=== PATIENT | male | born 1985 | race American Indian/Alaskan Native ===

== ENCOUNTER 2019-06-22 10:05 | Emergency (ER) | payer OTHER ==
[2019-06-22 10:28] VITALS: BP 125/80
[2019-06-22] MEDS ORDERED: ONDANSETRON 4 MG/2 ML INJ IV ONE (11:29)
[2019-06-22] MEDS ORDERED: FAMOTIDINE 20 MG/2 ML INJ IV ONE (11:29)
[2019-06-22] MEDS ORDERED: DICYCLOMINE 20 MG/2 ML INJ IM ONE (11:29)
[2019-06-22] MEDS ORDERED: SODIUM CHLORIDE 0.9% 1000 ML 1,000 ML IV ONE (11:29)
[2019-06-22] MEDS ORDERED: KETOROLAC 30 MG/1 ML INJ IV ONE (11:31)
[2019-06-22 11:50] LABS: Bilirubin,Urine NEG (Negative); Blood,Urine SM (Negative); Color,Urine Yellow (Yellow); Mucus,Urine FEW /HPF; Urobilinogen,Urine < 2.0 mg/dL (<2.0)
[2019-06-22 11:51] LABS: WBC,Urine < 1.0 /HPF (0.0-6.0)
[2019-06-22 12:01] LABS: Hematocrit 48.8 % (35.5-45.6); Hemoglobin 16.8 gm/dl (11.8-15.2); Mean Corpuscular HGB Conc 34 % (32-34); Mean Corpuscular Volume 90 fl (84-94); Platelet Count 217 K/mm3 (140-440); Red Blood Count 5.41 M/mm3 (3.65-5.03)
[2019-06-22 12:24] LABS: Alanine Aminotransferase 30 units/L (7-56); Albumin 4.7 g/dL (3.9-5); BUN/Creatinine Ratio 13; Blood Urea Nitrogen 14 mg/dL (9-20); Calcium 9.7 mg/dL (8.4-10.2); Hemolysis Index 27
[2019-06-22 12:53] LABS: Basophils % (Manual) 0 % (0.0-1.8); Eosinophils % (Manual) 0 % (0.0-4.3); Total Cells Counted 100
[2019-06-22 12:54] LABS: Anisocytosis Few; Platelet Estimate Consistent w Auto
--- NOTE | 2019-06-22 13:59 | Cat Scan Report ---
CT abdomen pelvis w con INDICATION: NVD abd pain. TECHNIQUE: All CT scans at this location are performed using the following dose modulation technique: Automated exposure control. CONTRAST: IV. COMPARISON: None available. CT ABDOMEN: Evaluation the parenchymal organs demonstrates a large fatty liver. The large and small bowel contains fluid scattered diffusely. Negative for obstruction or localized w all thickening. Mild increased density is seen at the root of the small bowel mesentery with numerous small associated nodes. No mass, retroperitoneal adenopathy or fluid collection CT PELVIS: Negative for mass, adenopathy or inflammation. IMPRESSION: 1. Gastroenteritis-type process. 2. Increased density at the root of the small bowel mesentery with associated small nodes is likely r eactive. Signer Name: Andriy Christian MD Signed: 06/22/2019 1:54 PM Workstation Name: [id number]
--- NOTE | 2019-06-22 14:15 | Emergency Department Report ---
ED N/V/D HPI - General Chief complaint: Nausea/Vomiting/Diarrhea Stated complaint: CHEST PAIN/WEAK/V/D Time Seen by Provider: 06/22/19 11:14 Source: patient Mode of arrival: Wheelchair Limitations: No Limitations - History of Present Illness Initial comments: Patient is a 33-year-old -[place] male with no significant past medical history who states he has had nausea and vomiting and some mild diarrhea since early this morning. Patient states his last meal was fast food. Patient states he woke up with chills and has been unable to keep anything down. Patient's abdominal pain is crampy in nature and is centrally located. There is no radi ation at this time. Patient denies cough cold congestion sore throat or neck stiffness at this time. MD complaint: nausea, vomiting, diarrhea, abdominal pain - Related Data Previous Rx's Medication Instructions Recorded Last Taken Type Cyclobenzaprine [Flexeril] 10 mg PO TID #14 tablet 03/09/13 Unknown Rx Hydrocodone Bit/Acetaminophen 1 each PO Q8H #10 tablet 03/09/13 Unknown Rx [Lortab 7.5-500 mg] Dicyclomine [Bentyl] 20 mg PO QID #10 tablet 06/22/19 Unknown Rx Famotidine [Pepcid] 20 mg PO BID #20 tablet 06/22/19 Unknown Rx Ondansetron [Zofran Odt] 4 mg PO Q8HR #10 tab.rapdis 06/22/19 Unknown Rx Allergies Allergy/AdvReac Type Severity Reaction Status Date / Time No Known Allergies Allergy Unverified 03/09/13 13:05 ED Review of Systems ROS: Stated complaint: CHEST PAIN/WEAK/V/D Other details as noted in HPI Comment: All other systems reviewed and negative ED Past Medical Hx - Past Medical History Previous Medical History?: No - Surgical History Past Surgical History?: No - Social History Smoking Status: Never Smoker Substance Use Type: Alcohol - Medications Home Medications: Home Medications Medication Instructions Recorded Confirmed Last Taken Type Cyclobenzaprine [Flexeril] 10 mg PO TID #14 tablet 03/09/13 Unknown Rx Hydrocodone Bit/Acetaminophen 1 each PO Q8H #10 tablet 03/09/13 Unknown Rx [Lortab 7.5-500 mg] Dicyclomine [Bentyl] 20 mg PO QID #10 tablet 06/22/19 Unknown Rx Famotidine [Pepcid] 20 mg PO BID #20 tablet 06/22/19 Unknown Rx Ondansetron [Zofran Odt] 4 mg PO Q8HR #10 tab.rapdis 06/22/19 Unknown Rx ED Physical Exam - General Limitations: No Limitations General appearance: alert, in distress - Head Head exam: Present: atraumatic, normocephalic - Eye Eye exam: Present: normal appearance, PERRL, EOMI - ENT ENT exam: Present: mucous membranes moist - Neck Neck exam: Present: normal inspection - Respiratory Respiratory exam: Present: normal lung sounds bilaterally. Absent: respiratory distress, wheezes, rales, rhonchi - Cardiovascular Cardiovascular Exam: Present: regular rate, normal rhythm, normal heart sounds. Absent: systolic murmur, diastolic murmur, rubs, gallop - GI/Abdominal GI/Abdominal exam: Present: soft, tenderness (central), normal bowel sounds. Absent: distended, guarding, rebound - Rectal Rectal exam: Present: deferred - Extremities Exam Extremities exam: Present: normal inspection - Back Exam Back exam: Present: normal inspection - Neurological Exam Neurological exam: Present: alert, oriented X3 - Psychiatric Psychiatric exam: Present: normal affect, normal mood - Skin Skin exam: Present: warm, dry, intact, normal color. Absent: rash ED Course Vital Signs 06/22/19 10:27 Temperature 99.5 F Pulse Rate 105 H Respiratory 20 Rate Blood Pressure 125/80 O2 Sat by Pulse 98 Oximetry ED Medical Decision Making - Lab Data Result diagrams: 06/22/19 11:49 06/22/19 11:49 Lab Results 06/22/19 06/22/19 06/22/19 Range/Units 11:25 11:49 11:49 WBC 9.5 (4.5-11.0) K/mm3 RBC 5.41 H (3.65-5.03) M/mm3 Hgb 16.8 H (11.8-15.2) gm/dl Hct 48.8 H (35.5-45.6) % MCV 90 (84-94) fl MCH 31 (28-32) pg MCHC 34 (32-34) % RDW 13.0 L (13.2-15.2) % Plt Count 217 (140-440) K/mm3 Add Manual Diff Complete Total Counted 100 Seg Neutrophils % Laborer/Grade Check Seg Neuts % (Manual) 93.0 H (40.0-70.0) % Band Neutrophils % 0 % Lymphocytes % (Manual) 6.0 L (13.4-35.0) % Reactive Lymphs % (Man) 0 % Monocytes % (Manual) 1.0 (0.0-7.3) % Eosinophils % (Manual) 0 (0.0-4.3) % Basophils % (Manual) 0 (0.0-1.8) % Metamyelocytes % 0 % Myelocytes % 0 % Promyelocytes % 0 % Blast Cells % 0 % Nucleated RBC % Not Reportable Seg Neutrophils # Man 8.8 H (1.8-7.7) K/mm3 Band Neutrophils # 0.0 K/mm3 Lymphocytes # (Manual) 0.6 L (1.2-5.4) K/mm3 Abs React Lymphs (Man) 0.0 K/mm3 Monocytes # (Manual) 0.1 (0.0-0.8) K/mm3 Eosinophils # (Manual) 0.0 (0.0-0.4) K/mm3 Basophils # (Manual) 0.0 (0.0-0.1) K/mm3 Metamyelocytes # 0.0 K/mm3 Myelocytes # 0.0 K/mm3 Promyelocytes # 0.0 K/mm3 Blast Cells # 0.0 K/mm3 WBC Morphology Not Reportable Hypersegmented Neuts Not Reportable Hyposegmented Neuts Not Reportable Hypogranular Neuts Not Reportable Smudge Cells Not Reportable Toxic Granulation Not Reportable Toxic Vacuolation Not Reportable Dohle Bodies Not Reportable Pelger-Huet Anomaly Not Reportable Tony Rods Not Reportable Platelet Estimate Consistent w auto Clumped Platelets Not Reportable Plt Clumps, EDTA Not Reportable Large Platelets Not Reportable Giant Platelets Not Reportable Platelet Satelliting Not Reportable Plt Morphology Comment Not Reportable RBC Morphology Not Reportable Dimorphic RBCs Not Reportable Polychromasia Not Reportable Hypochromasia Not Reportable Poikilocytosis Not Reportable Anisocytosis Few Microcytosis Not Reportable Macrocytosis Not Reportable Spherocytes Not Reportable Pappenheimer Bodies Not Reportable Sickle Cells Not Reportable Target Cells Not Reportable Tear Drop Cells Not Reportable Ovalocytes Not Reportable Helmet Cells Not Reportable [place] Bodies Not Reportable [place] Rings Not Reportable Jeannette Cells Not Reportable Bite Cells Not Reportable Crenated Cell Not Reportable Elliptocytes Not Reportable Acanthocytes (Spur) Not Reportable Rouleaux Not Reportable Hemoglobin C Crystals Not Reportable Schistocytes Not Reportable Malaria parasites Not Reportable Brando Bodies Not Reportable Hem Pathologist Commnt No Sodium 141 (137-145) mmol/L Potassium 4.8 (3.6-5.0) mmol/L Chloride 102.3 (98-107) mmol/L Carbon Dioxide 21 L (22-30) mmol/L Anion Gap 23 mmol/L BUN 14 (9-20) mg/dL Creatinine 1.1 (0.8-1.5) mg/dL Estimated GFR > 60 ml/min BUN/Creatinine Ratio 13 % Glucose 103 H (75-100) mg/dL Calcium 9.7 (8.4-10.2) mg/dL Total Bilirubin 0.50 (0.1-1.2) mg/dL AST 20 (5-40) units/L ALT 30 (7-56) units/L Alkaline Phosphatase 91 (35-129) units/L Total Protein 8.1 (6.3-8.2) g/dL Albumin 4.7 (3.9-5) g/dL Albumin/Globulin Ratio 1.4 % Lipase 14 (13-60) units/L Urine Color Yellow (Yellow) Urine Turbidity Clear (Clear) Urine pH 6.0 (5.0-7.0) Ur Specific [place] 1.026 (1.003-1.030) Urine Protein 30 mg/dl (Negative) mg/dL Urine Glucose (UA) Neg (Negative) mg/dL Urine Ketones Neg (Negative) mg/dL Urine Blood Sm (Negative) Urine Nitrite Neg (Negative) Urine Bilirubin Neg (Negative) Urine Urobilinogen < 2.0 (<2.0) mg/dL Ur Leukocyte Esterase Neg (Negative) Urine WBC (Auto) < 1.0 (0.0-6.0) /HPF Urine RBC (Auto) 1.0 (0.0-6.0) /HPF U Epithel Cells (Auto) < 1.0 (0-13.0) /HPF Urine Mucus Few /HPF - Radiology Data CT abdomen pelvis w con INDICATION: NVD abd pain. TECHNIQUE: All CT scans at this location are performed using the following dose modulation technique: Automated exposure control. CONTRAST: IV. COMPARISON: None available. CT ABDOMEN: Evaluation the parenchymal organs demonstrates a large fatty liver. The large and small bowel contains fluid scattered diffusely. Negative for obstruction or localized wall thickening. Mild increased density is seen at the root of the small bowel mesentery with numerous small associated nodes. No mass, retroperitoneal adenopathy or fluid collection CT PELVIS: Negative for mass, adenopathy or inflammation. IMPRESSION: 1. Gastroenteritis-type process. 2. Increased density at the root of the small bowel mesentery with associated small nodes is likely reactive. Signer Name: Andriy Christian MD Signed: 06/22/2019 1:54 PM Workstation Name: [id number] - Medical Decision Making Patient with 33-year-old male who is presenting with the fevers chills nausea vomiting diarrhea central lesion located abdominal pain. On the patient's differential diagnoses the following conditions are being considered: Appendicitis and diverticulitis colitis gastroenteritis from food poisoning mesenteric adenitis biliary colic and pancreatitis. CT of abdomen and pelvis was ordered to rule out these conditions. Laboratory studies shows patient does have some hemoconcentration patient was given IV fluids. Patient also given meds for symptomatically relief. A CT of the abdomen shows a simple gastroenteritis type pattern. Patient is feeling improved and the patient be discharged home. Critical care attestation.: If time is entered above; I have spent that time in minutes in the direct care of this critically ill patient, excluding procedure time. ED Disposition Clinical Impression: Gastroenteritis, Food poisoning, Mild dehydration Disposition: DC-01 TO HOME OR SELFCARE Is pt being admited?: No Does the pt Need Aspirin: No Condition: Stable Instructions: Food Poisoning (ED) Referrals: PRIMARY CARE, [Primary Care Provider] - 3-5 Days Time of Disposition: 14:18
== END 2019-06-22 14:35 | disposition home or self-care (01) ==
LOC: ED 10:05
DX: K52.9 Noninfective gastroenteritis and colitis, unspecified (principal); A05.9 Bacterial foodborne intoxication, unspecified; E86.0 Dehydration
CPT/HCPCS: 36415; 74177; 80053; 81001; 83690; 85007; 85025; 96361; 96372; 96374; 96375; 99284; J0500; J1885; J2405; J7030; Q9967

== ENCOUNTER 2020-06-22 07:18 | Emergency (ER) | payer OTHER ==
[2020-06-22 07:31] VITALS: BP 148/94
--- NOTE | 2020-06-22 08:15 | XRay Report ---
RIGHT FOREARM 2 VIEWS INDICATION: pain. COMPARISON: None. IMPRESSION: No acute osseous or soft tissue abnormality. No significant DJD. Signer Name: Ethan Benítez Jr, MD Signed: 06/22/2020 8:11 AM Workstation Name: [id number]
--- NOTE | 2020-06-22 10:05 | Emergency Department Report ---
Upper Extremity - [facility] Chief Complaint: Extremity Injury, Upper Stated Complaint: RIGHT ARM PAIN Time Seen by Provider: 06/22/20 10:01 Upper Extremity: Right Forearm Occurred When: >5 Days (April 2020) Mechanism: Hyperextension Severity: mild Symptoms: Yes Pain with Movement (When pulling a suitcase), No Deformity, No Limited Range of Movement, No Numbness, No Weakness, No Swelling, No Bruising/Ecchymosis, No Laceration or Abrasion Other History: 34-year-old -Citizen Of [place] male presents to the emergency room complaining of right forearm sprain patient states he was working out. Patient reports that this been going on for approximately 3 months. He states the pain is worse when he tries to pull his luggage. He denies any direct injury. No trauma no fall. Denies any past medical history takes no medications on a daily basis and has no known drug allergies. ED Review of Systems ROS: Stated complaint: RIGHT ARM PAIN Other details as noted in HPI ED Past Medical Hx - Past Medical History Previous Medical History?: No - Surgical History Past Surgical History?: No - Social History Smoking Status: Never Smoker Substance Use Type: None - Medications Home Medications: Home Medications Medication Instructions Recorded Confirmed Last Taken Type Cyclobenzaprine [Flexeril] 10 mg PO TID #14 tablet 03/09/13 Unknown Rx Hydrocodone Bit/Acetaminophen 1 each PO Q8H #10 tablet 03/09/13 Unknown Rx [Lortab 7.5-500 mg] Dicyclomine [Bentyl] 20 mg PO QID #10 tablet 06/22/19 Unknown Rx Famotidine [Pepcid] 20 mg PO BID #20 tablet 06/22/19 Unknown Rx Ondansetron [Zofran Odt] 4 mg PO Q8HR #10 tab.rapdis 06/22/19 Unknown Rx Upper Extremity Exam - Exam General: Vital signs noted. No distress. Alert and acting appropriately. Head and Torso: No HEENT Abnormality, No Neck Tenderness, No Chest/Lungs Abnormality, No Abdominal Tenderness, No Back Tenderness Shoulder Exam: Yes Normal Range of Motion in Shoulder, No Shoulder Tenderness, No Clavicle Tenderness, No Shoulder Deformity, No AC Joint Tenderness Arm Exam: Yes Arm/Humerus Tenderness, No Arm Deformity Elbow: Yes Normal Range of Motion in Elbow, No Elbow Tenderness, No Elbow Deformity Forearm: Yes Forearm Tenderness, No Forearm Deformity, No Pain with Pronation, No Pain with Supination Wrist: Yes Normal ROM in Wrist, No Wrist Tenderness, No Wrist Deformity, No Snuffbox Tenderness, No Pain with Axial Thumb Compression Hand: Yes Normal ROM in Digit(s), No Hand Tenderness, No Hand Deformity, No Digit Tenderness, No Digit(s) Deformity, No Tendon Dysfunction CMS Exam: No Broken Skin, No Normal Distal Pulses, No Normal Capillary Refill, No Normal Distal Sensation ED Course Vital Signs 06/22/20 07:25 Temperature 98.1 F Pulse Rate 73 Respiratory 18 Rate Blood Pressure 148/94 O2 Sat by Pulse 96 Oximetry ED Medical Decision Making - Medical Decision Making 34-year-old -Citizen Of [place] male presents to the emergency room complaining of right forearm sprain patient states he was working out. Patient reports that this been going on for approximately 3 months. He states the pain is worse when he tries to pull his luggage. He denies any direct injury. No trauma no fall. Denies any past medical history takes no medications on a daily basis and has no known drug allergies. X-ray of right forearm is negative for any acute processes. Discussed with patient he can take Tylenol or ibuprofen and to follow-up with an orthopedic provider. Critical care attestation.: If time is entered above; I have spent that time in minutes in the direct care of this critically ill patient, excluding procedure time. ED Disposition Clinical Impression: Strain of forearm, right Qualifiers: Encounter type: initial encounter Qualified Code(s): S56.911A - Strain of unspecified muscles, fascia and tendons at forearm level, right arm, initial encounter Disposition: TO HOME OR SELFCARE Is pt being admited?: No Does the pt Need Aspirin: No Condition: Stable Instructions: Muscle Strain, [id number] Additional Instructions: X-ray is negative for any acute fractures or abnormalities. I recommend following up with orthopedic provider. You can try ibuprofen or Tylenol. Try [id number] Voltaren gel or Aspercreme. Referrals: PRIMARY CARE, [Primary Care Provider] - 3-5 Days ELTON PATINO MD [Staff Physician] - 3-5 Days KELI GUEVARA MD [Staff Physician] - 3-5 Days
== END 2020-06-22 10:20 | disposition home or self-care (01) ==
LOC: ED 07:18
DX: S56.911A Strain of unspecified muscles, fascia and tendons at forearm level, right arm, initial encounter (principal); Z79.899 Other long term (current) drug therapy; X58.XXXA Exposure to other specified factors, initial encounter; Y93.89 Activity, other specified; Y92.89 Other specified places as the place of occurrence of the external cause; Y99.8 Other external cause status
CPT/HCPCS: 99283